=== PATIENT | male | born 1965 | race Caucasian/White ===

== ENCOUNTER 2024-09-09 09:25 | Emergency (ER) | payer SELFPAY ==
[2024-09-09] MEDS ORDERED: Magnesium 2 GM/50 ML BAG (IN WATER) ONE (09:37)
[2024-09-09] MEDS ORDERED: Sodium Chloride 0.9% 500 ML ONE ×2 (09:37→10:27)
[2024-09-09] MEDS ORDERED: Etomidate 40 MG (20 mL) VIAL ONE (09:43)
[2024-09-09] MEDS ORDERED: Ondansetron ODT 4 MG TAB ONE (09:48)
[2024-09-09 09:56] LABS: INR-International Normal Ratio 1.1; Prothrombin Time 14.4 sec (12.0-14.7)
[2024-09-09 09:57] LABS: PTT 32.4 sec (22.9-36.1)
[2024-09-09 10:01] LABS: #Basophils 0.1 thou/uL (0.0-0.2); #Eosinophils 0.1 thou/uL (0.0-0.7); #Lymphocytes 3.2 thou/uL (1.20-3.40); #Monocytes 0.8 thou/uL (0.11-0.59); #Neutrophils 4.3 thou/uL (1.40-6.50); %Basophils 1.1 % (0.0-1.0); %Eosinophils 1.4 % (0.0-10.0); %Lymphocytes 37.6 % (21.0-51.0); %Monocytes 9.2 % (0.0-10.0); %Neutrophils 50.7 % (42.0-75.0); Hemoglobin 15.3 g/dL (14.0-18.0); Mean Corpuscular HGB CONC 34.1 g/dL (32.0-36.0); Mean Corpuscular Hemoglobin 31.8 pg (27.0-31.0); Mean Corpuscular Volume 93.2 fl (78.0-98.0); Mean Platelet Volume 6.2 fL (7.4-10.4); Platelet Count 373 10x3/uL (130-400); RBC Distribution Width 11.2 % (11.5-14.5); Red Blood Cell (RBC) Count 4.83 mill/uL (4.70-6.10); White Blood Cell (WBC) Count 8.5 10x3/uL (4.8-10.8)
[2024-09-09 10:07] LABS: Troponin I Less than 0.010 ng/mL (< 0.028)
[2024-09-09 10:08] LABS: ALT (SGPT) 26 U/L (8-55); AST (SGOT) 25 U/L (5-34); Alkaline Phosphatase 57 U/L (40-110); Anion Gap 17 mmol/L (10-20); BUN (Urea Nitrogen) 17 mg/dL (8.4-25.7); Bilirubin, Total 0.7 mg/dL (0.2-1.2); Calc. Creatinine Clearance 0 mL/min (70-130); Calcium 9.5 mg/dL (7.8-10.44); Carbon Dioxide 21 mmol/L (22-29); Chloride 106 mmol/L (98-107); Estimated GFR 58; Globulin 3.3 g/dL (2.4-3.5); Glucose 121 mg/dL (70-105); Magnesium 2.1 mg/dL (1.6-2.6); Potassium 3.5 mmol/L (3.5-5.1); Protein, Total 7.3 g/dL (6.0-8.3); Sodium 140 mmol/L (136-145)
[2024-09-09] MEDS ORDERED: Metoprolol Tartrate 5 MG (5 mL) VIAL ONE (10:10)
[2024-09-09] MEDS ORDERED: Ondansetron PF 4 MG/2 ML Vial ONE (10:26)
== END 2024-09-09 11:26 | disposition home or self-care (01) ==
LOC: NAV ERS 09:25
DX: I48.91 Unspecified atrial fibrillation (principal); E78.00 Pure hypercholesterolemia, unspecified; R73.03 Prediabetes; Z95.810 Presence of automatic (implantable) cardiac defibrillator; Z79.01 Long term (current) use of anticoagulants; Z79.84 Long term (current) use of oral hypoglycemic drugs
CPT/HCPCS: 71045; 80053; 83735; 83880; 84484; 85025; 85610; 85730; 92960; 93005; 96374; 96375; 99152; 99292; J2405; J3475; J7030; Q0162